=== PATIENT | female | born 1945 | race Caucasian/White ===

== ENCOUNTER 2020-03-04 17:43 | Inpatient (IN) | payer OTHER, MEDICARE ==
[2020-03-04 18:37] VITALS: BMI 25.7
[2020-03-04] MEDS ORDERED: SODIUM CHLORIDE 1,000 ML IV SCH (20:00)
[2020-03-04] MEDS ORDERED: DEXAMETHASONE SOD PHOSPHATE 4 MG/1 ML VIAL IVPUSH ONE (20:46)
[2020-03-04] MEDS ORDERED: ASPIRIN 81 MG CHEWABLE TABLETS PO ONE (20:46)
[2020-03-04] MEDS ORDERED: ATORVASTATIN CA 80 MG TABLET (FP) PO ONE (20:47)
[2020-03-04] MEDS ORDERED: ATORVASTATIN CA 80 MG TABLET (FP) ONE (20:56)
[2020-03-04] MEDS ORDERED: ASPIRIN 81 MG CHEWABLE TABLETS ONE (20:56)
[2020-03-04] MEDS ORDERED: DEXAMETHASONE SOD PHOSPHATE 10 MG/1 ML VIAL ONE (20:56)
[2020-03-04 21:15] LABS: BASO % 0.3 % (0-2.0); EOS % 0.2 % (0-4.5); HEMATOCRIT 37.3 % (32.4-45.2); HEMOGLOBIN 12.3 GM/dL (10.7-15.3); LYMPH % 4.7 % (8-40); MCH 28.2 pg (25.7-33.7); MCHC 32.9 g/dl (32.0-36.0); MEAN CELL VOLUME 85.6 fl (80-96); MEAN PLT VOLUME 11.5 fl (7.5-11.1); MONO % 7.2 % (3.8-10.2); NEUT % 87.6 % (42.8-82.8); PLATELET COUNT 217 K/MM3 (134-434); RBC 4.36 M/mm3 (3.60-5.2); RDW 13.6 % (11.6-15.6); WHITE BLOOD COUNT 11.7 K/mm3 (4.0-10.0)
[2020-03-04 21:25] LABS: INR 1.15 (0.83-1.09); PROTHROMBIN TIME (PATIENT) 13.9 SEC (9.7-13.0)
[2020-03-04 21:27] LABS: ACTIVATED PTT 30.7 SECONDS (25.2-36.5)
[2020-03-04 21:32] LABS: CALCIUM 8.9 mg/dL (8.5-10.1)
[2020-03-04 21:33] LABS: ALBUMIN 2.6 g/dl (3.4-5.0); BLOOD UREA NITROGEN 10.2 mg/dL (7-18)
[2020-03-04 21:36] LABS: CHOLESTEROL 127 mg/dL (50-200); CREATININE 0.6 mg/dL (0.55-1.3); TRIGLYCERIDES 123 mg/dL (0-150)
[2020-03-04 21:37] LABS: LDL CHOLESTEROL (ONLY SJRH) 80 mg/dL (5-100)
[2020-03-04 21:38] LABS: BILIRUBIN,TOTAL 0.6 mg/dL (0.2-1); TOT PROT 6.7 g/dl (6.4-8.2)
[2020-03-04 21:39] LABS: HDL CHOLESTEROL 32 mg/dL (40-60)
[2020-03-05 00:33] LABS: EPI CELLS 29 /uL (0-25.1); HYALINE CASTS 0 /uL (0-3.1); PH,URINE 7.5 (5.0-8.0); URINE APPEARANCE CLOUDY; URINE BACTERIA 5419 /uL (0-1359); URINE BILIRUBIN NEGATIVE (NEGATIVE); URINE COLOR YELLOW; URINE GLUCOSE (UA) NEGATIVE (NEGATIVE); URINE KETONE NEGATIVE (NEGATIVE); URINE LEUK ESTERASE 1+ (NEGATIVE); URINE NITRITE POSITIVE (NEGATIVE); URINE PROTEIN NEGATIVE (NEGATIVE); URINE RBC 7 /uL (0-23.9); URINE WBC 35 /uL (0-25.8)
[2020-03-05 03:02] LABS: BILIRUBIN,DIRECT 0.2 mg/dL (0.0-0.2)
[2020-03-05 06:10] LABS: BASO % 0.3 % (0-2.0); HEMATOCRIT 35.5 % (32.4-45.2); LYMPH % 5.6 % (8-40); MCH 28.8 pg (25.7-33.7); MCHC 33.8 g/dl (32.0-36.0); MEAN CELL VOLUME 85.4 fl (80-96); MEAN PLT VOLUME 11.3 fl (7.5-11.1); NEUT % 91.1 % (42.8-82.8); PLATELET COUNT 202 K/MM3 (134-434); RBC 4.16 M/mm3 (3.60-5.2); RDW 13.3 % (11.6-15.6); WHITE BLOOD COUNT 8.8 K/mm3 (4.0-10.0)
[2020-03-05 06:34] LABS: ALBUMIN 2.3 g/dl (3.4-5.0); BLOOD UREA NITROGEN 6.9 mg/dL (7-18); CALCIUM 8.7 mg/dL (8.5-10.1); MAGNESIUM 2.1 mg/dL (1.8-2.4)
[2020-03-05 06:37] LABS: CREATININE 0.6 mg/dL (0.55-1.3); PHOSPHOROUS 3.4 mg/dL (2.5-4.9)
[2020-03-05 06:38] LABS: BILIRUBIN,TOTAL 0.6 mg/dL (0.2-1); TOT PROT 6.1 g/dl (6.4-8.2)
[2020-03-05 07:10] LABS: ANISOCYTOSIS 2+; MACROCYTOSIS 1+; PLATELET ESTIMATE NORMAL
[2020-03-05] MEDS ORDERED: DEXAMETHASONE SOD PHOSPHATE 10 MG/1 ML VIAL ONE (10:42)
[2020-03-05] MEDS ORDERED: ENOXAPARIN NA (PORCINE) 40 MG/0.4 ML DISP.SYRIN SQ ONE (10:42)
[2020-03-05] MEDS ORDERED: CHOLECALCIFEROL (VIT D3) 1,000 UNIT (25 MCG) TABLET ONE (10:42)
[2020-03-05] MEDS ORDERED: ASPIRIN 81 MG CHEWABLE TABLETS ONE (10:42)
[2020-03-05] MEDS ORDERED: ASCORBIC ACID 500 MG TABLET (FP) ONE (10:42)
[2020-03-05] MEDS ORDERED: ZINC SULFATE 220 MG CAPSULE (FP) ONE (10:42)
[2020-03-05] MEDS ORDERED: ATORVASTATIN CA 40 MG TABLET (FP) ONE (10:42)
[2020-03-05] MEDS ORDERED: FAMOTIDINE 20 MG/50 ML IVPB 20 MG/50 ML MG IVPB ONE (10:43)
[2020-03-05] MEDS: ENOXAPARIN NA (PORCINE) 40 MG/0.4 ML DISP.SYRIN SQ SCH (11:51)
[2020-03-05] MEDS: ATORVASTATIN CA 40 MG TABLET (FP) PO SCH (11:51)
[2020-03-05] MEDS: ASPIRIN 81 MG CHEWABLE TABLETS PO SCH (11:51)
[2020-03-05] MEDS: DEXAMETHASONE SOD PHOSPHATE 4 MG/1 ML VIAL IVPUSH SCH (11:51)
[2020-03-05] MEDS: ASCORBIC ACID 500 MG TABLET (FP) PO SCH ×2 (11:52→21:33)
[2020-03-05] MEDS: FAMOTIDINE 20 MG/50 ML IVPB 20 MG/50 ML MG IVPB SCH ×2 (11:52→21:33)
[2020-03-05] MEDS: CHOLECALCIFEROL (VIT D3) 1,000 UNIT (25 MCG) TABLET PO SCH (11:52)
[2020-03-05] MEDS: ZINC SULFATE 220 MG CAPSULE (FP) PO SCH (11:52)
[2020-03-05] MEDS ORDERED: ATORVASTATIN CA 80 MG TABLET (FP) PO SCH (22:00)
[2020-03-06] MEDS ORDERED: SODIUM CHLORIDE 500 ML IV STA (07:55)
[2020-03-06] MEDS: FAMOTIDINE 20 MG/50 ML IVPB 20 MG/50 ML MG IVPB SCH ×2 (09:55→21:09)
[2020-03-06] MEDS: DEXAMETHASONE SOD PHOSPHATE 4 MG/1 ML VIAL IVPUSH SCH (09:55)
[2020-03-06] MEDS: ENOXAPARIN NA (PORCINE) 40 MG/0.4 ML DISP.SYRIN SQ SCH (09:55)
[2020-03-06] MEDS: ATORVASTATIN CA 40 MG TABLET (FP) PO SCH (09:56)
[2020-03-06] MEDS: CLOPIDOGREL BISULFATE 75 MG TABLET (FP) PO SCH (09:56)
[2020-03-06] MEDS: CHOLECALCIFEROL (VIT D3) 1,000 UNIT (25 MCG) TABLET PO SCH (09:56)
[2020-03-06] MEDS: ZINC SULFATE 220 MG CAPSULE (FP) PO SCH (09:56)
[2020-03-06] MEDS: ASPIRIN 81 MG CHEWABLE TABLETS PO SCH (09:56)
[2020-03-06] MEDS: ASCORBIC ACID 500 MG TABLET (FP) PO SCH ×2 (09:56→21:08)
[2020-03-06 11:23] LABS: HEMATOCRIT 32.5 % (32.4-45.2); HEMOGLOBIN 10.8 GM/dL (10.7-15.3); MCH 28.8 pg (25.7-33.7); MCHC 33.2 g/dl (32.0-36.0); MEAN CELL VOLUME 86.6 fl (80-96); MEAN PLT VOLUME 11.7 fl (7.5-11.1); PLATELET COUNT 187 K/MM3 (134-434); RBC 3.75 M/mm3 (3.60-5.2); RDW 13.6 % (11.6-15.6); WHITE BLOOD COUNT 11.3 K/mm3 (4.0-10.0)
[2020-03-06 11:28] LABS: BLOOD UREA NITROGEN 17.9 mg/dL (7-18); CALCIUM 8.5 mg/dL (8.5-10.1); MAGNESIUM 2.4 mg/dL (1.8-2.4)
[2020-03-06 11:31] LABS: CREATININE 0.7 mg/dL (0.55-1.3)
[2020-03-07 06:50] LABS: HEMATOCRIT 33.9 % (32.4-45.2); HEMOGLOBIN 11.2 GM/dL (10.7-15.3); MCH 28.7 pg (25.7-33.7); MCHC 33.2 g/dl (32.0-36.0); MEAN CELL VOLUME 86.5 fl (80-96); MEAN PLT VOLUME 11.5 fl (7.5-11.1); PLATELET COUNT 181 K/MM3 (134-434); RBC 3.92 M/mm3 (3.60-5.2); RDW 13.4 % (11.6-15.6); WHITE BLOOD COUNT 10.7 K/mm3 (4.0-10.0)
[2020-03-07 07:18] LABS: CALCIUM 8.5 mg/dL (8.5-10.1)
[2020-03-07 07:22] LABS: CREATININE 0.6 mg/dL (0.55-1.3)
[2020-03-07 07:27] LABS: BLOOD UREA NITROGEN 19.7 mg/dL (7-18)
[2020-03-07] MEDS: DEXAMETHASONE SOD PHOSPHATE 4 MG/1 ML VIAL IVPUSH SCH (09:00)
[2020-03-07] MEDS: ZINC SULFATE 220 MG CAPSULE (FP) PO SCH (09:00)
[2020-03-07] MEDS: CHOLECALCIFEROL (VIT D3) 1,000 UNIT (25 MCG) TABLET PO SCH (09:00)
[2020-03-07] MEDS: ASCORBIC ACID 500 MG TABLET (FP) PO SCH ×2 (09:00→22:39)
[2020-03-07] MEDS: CLOPIDOGREL BISULFATE 75 MG TABLET (FP) PO SCH (09:00)
[2020-03-07] MEDS: ENOXAPARIN NA (PORCINE) 40 MG/0.4 ML DISP.SYRIN SQ SCH (09:00)
[2020-03-07] MEDS: FAMOTIDINE 20 MG/50 ML IVPB 20 MG/50 ML MG IVPB SCH ×2 (09:00→22:39)
[2020-03-07] MEDS: ASPIRIN 81 MG CHEWABLE TABLETS PO SCH (09:00)
[2020-03-07] MEDS: ATORVASTATIN CA 40 MG TABLET (FP) PO SCH (11:05)
[2020-03-08] MEDS ORDERED: PT OWN MED DRAWER 7, Y5N ONE (09:29)
[2020-03-08] MEDS: ENOXAPARIN NA (PORCINE) 40 MG/0.4 ML DISP.SYRIN SQ SCH (09:35)
[2020-03-08] MEDS: FAMOTIDINE 20 MG/50 ML IVPB 20 MG/50 ML MG IVPB SCH ×2 (09:35→22:01)
[2020-03-08] MEDS: CHOLECALCIFEROL (VIT D3) 1,000 UNIT (25 MCG) TABLET PO SCH (09:36)
[2020-03-08] MEDS: ASPIRIN 81 MG CHEWABLE TABLETS PO SCH (09:36)
[2020-03-08] MEDS: CLOPIDOGREL BISULFATE 75 MG TABLET (FP) PO SCH (09:36)
[2020-03-08] MEDS: ZINC SULFATE 220 MG CAPSULE (FP) PO SCH (09:36)
[2020-03-08] MEDS: DEXAMETHASONE SOD PHOSPHATE 4 MG/1 ML VIAL IVPUSH SCH (09:36)
[2020-03-08] MEDS: ATORVASTATIN CA 40 MG TABLET (FP) PO SCH (09:36)
[2020-03-08] MEDS: ASCORBIC ACID 500 MG TABLET (FP) PO SCH ×2 (09:36→22:01)
[2020-03-09 09:15] LABS: BASO % 0.9 % (0-2.0); EOS % 0.4 % (0-4.5); HEMOGLOBIN 12.2 GM/dL (10.7-15.3); MCH 28.8 pg (25.7-33.7); MCHC 33.1 g/dl (32.0-36.0); MEAN CELL VOLUME 86.9 fl (80-96); MEAN PLT VOLUME 11.5 fl (7.5-11.1); MONO % 8.2 % (3.8-10.2); NEUT % 81.5 % (42.8-82.8); PLATELET COUNT 176 K/MM3 (134-434); RBC 4.25 M/mm3 (3.60-5.2); RDW 13.8 % (11.6-15.6); WHITE BLOOD COUNT 11.6 K/mm3 (4.0-10.0)
[2020-03-09 09:41] LABS: ALBUMIN 2.7 g/dl (3.4-5.0); BLOOD UREA NITROGEN 20.9 mg/dL (7-18); MAGNESIUM 2.6 mg/dL (1.8-2.4)
[2020-03-09 09:44] LABS: CREATININE 0.7 mg/dL (0.55-1.3)
[2020-03-09] MEDS: CHOLECALCIFEROL (VIT D3) 1,000 UNIT (25 MCG) TABLET PO SCH (09:45)
[2020-03-09] MEDS: ASCORBIC ACID 500 MG TABLET (FP) PO SCH ×2 (09:45→21:11)
[2020-03-09] MEDS: ZINC SULFATE 220 MG CAPSULE (FP) PO SCH (09:45)
[2020-03-09] MEDS: CLOPIDOGREL BISULFATE 75 MG TABLET (FP) PO SCH (09:45)
[2020-03-09 09:46] LABS: BILIRUBIN,TOTAL 0.4 mg/dL (0.2-1); TOT PROT 6.1 g/dl (6.4-8.2)
[2020-03-09] MEDS: ATORVASTATIN CA 40 MG TABLET (FP) PO SCH (09:46)
[2020-03-09] MEDS: ASPIRIN 81 MG CHEWABLE TABLETS PO SCH (09:46)
[2020-03-09] MEDS: ENOXAPARIN NA (PORCINE) 40 MG/0.4 ML DISP.SYRIN SQ SCH (09:46)
[2020-03-09] MEDS: DEXAMETHASONE SOD PHOSPHATE 4 MG/1 ML VIAL IVPUSH SCH (09:46)
[2020-03-09] MEDS: FAMOTIDINE 20 MG/50 ML IVPB 20 MG/50 ML MG IVPB SCH ×2 (09:47→21:11)
[2020-03-09 11:20] LABS: ANISOCYTOSIS 0; HELMET CELLS 0; HOWELL-JOLLY BODIES 0; MACROCYTOSIS 0; OVALOCYTE 0; PLATELET ESTIMATE DECREASED; ROULEAU 0; SICKELED CELLS 0; TARGET CELLS 0; TEAR DROP CELLS 0; TOXIC GRANULATION 0
[2020-03-09] MEDS: DOCUSATE SODIUM 100 MG CAPSULE (FP) PO SCH (13:09)
[2020-03-10 07:57] LABS: BASO % 0.2 % (0-2.0); EOS % 0.8 % (0-4.5); HEMATOCRIT 35.1 % (32.4-45.2); HEMOGLOBIN 11.9 GM/dL (10.7-15.3); LYMPH % 11.1 % (8-40); MCH 29.2 pg (25.7-33.7); MCHC 33.8 g/dl (32.0-36.0); MEAN CELL VOLUME 86.3 fl (80-96); MEAN PLT VOLUME 12.1 fl (7.5-11.1); MONO % 7.9 % (3.8-10.2); PLATELET COUNT 169 K/MM3 (134-434); RBC 4.07 M/mm3 (3.60-5.2); RDW 13.4 % (11.6-15.6); WHITE BLOOD COUNT 10.7 K/mm3 (4.0-10.0)
[2020-03-10 08:27] LABS: CALCIUM 8.6 mg/dL (8.5-10.1)
[2020-03-10 08:28] LABS: ALBUMIN 2.5 g/dl (3.4-5.0); MAGNESIUM 2.4 mg/dL (1.8-2.4)
[2020-03-10 08:29] LABS: CREATININE 0.7 mg/dL (0.55-1.3)
[2020-03-10 08:31] LABS: BILIRUBIN,TOTAL 0.4 mg/dL (0.2-1); TOT PROT 5.7 g/dl (6.4-8.2)
[2020-03-10 08:33] LABS: PHOSPHOROUS 3.3 mg/dL (2.5-4.9)
[2020-03-10 09:18] LABS: ANISOCYTOSIS 2+; MACROCYTOSIS 0; PLATELET ESTIMATE NORMAL
[2020-03-10] MEDS: ASCORBIC ACID 500 MG TABLET (FP) PO SCH ×2 (09:47→21:42)
[2020-03-10] MEDS: ENOXAPARIN NA (PORCINE) 40 MG/0.4 ML DISP.SYRIN SQ SCH (09:47)
[2020-03-10] MEDS: FAMOTIDINE 20 MG/50 ML IVPB 20 MG/50 ML MG IVPB SCH (09:47)
[2020-03-10] MEDS: CLOPIDOGREL BISULFATE 75 MG TABLET (FP) PO SCH (09:48)
[2020-03-10] MEDS: ASPIRIN 81 MG CHEWABLE TABLETS PO SCH (09:48)
[2020-03-10] MEDS: DOCUSATE SODIUM 100 MG CAPSULE (FP) PO SCH (09:48)
[2020-03-10] MEDS: CHOLECALCIFEROL (VIT D3) 1,000 UNIT (25 MCG) TABLET PO SCH (09:48)
[2020-03-10] MEDS: ZINC SULFATE 220 MG CAPSULE (FP) PO SCH (09:48)
[2020-03-10] MEDS: ATORVASTATIN CA 40 MG TABLET (FP) PO SCH (09:48)
[2020-03-10] MEDS: DEXAMETHASONE SOD PHOSPHATE 4 MG/1 ML VIAL IVPUSH SCH (09:48)
[2020-03-10] MEDS: FAMOTIDINE 20 MG TABLET PO SCH (21:42)
[2020-03-11] MEDS: FAMOTIDINE 20 MG TABLET PO SCH (10:19)
[2020-03-11] MEDS: ATORVASTATIN CA 40 MG TABLET (FP) PO SCH (10:19)
[2020-03-11] MEDS: ZINC SULFATE 220 MG CAPSULE (FP) PO SCH (10:19)
[2020-03-11] MEDS: ASCORBIC ACID 500 MG TABLET (FP) PO SCH (10:19)
[2020-03-11] MEDS: DEXAMETHASONE SOD PHOSPHATE 4 MG/1 ML VIAL IVPUSH SCH (10:19)
[2020-03-11] MEDS: DOCUSATE SODIUM 100 MG CAPSULE (FP) PO SCH (10:19)
[2020-03-11] MEDS: ENOXAPARIN NA (PORCINE) 40 MG/0.4 ML DISP.SYRIN SQ SCH (10:19)
[2020-03-11] MEDS: CLOPIDOGREL BISULFATE 75 MG TABLET (FP) PO SCH (10:19)
[2020-03-11] MEDS: ASPIRIN 81 MG CHEWABLE TABLETS PO SCH (10:19)
[2020-03-11] MEDS: CHOLECALCIFEROL (VIT D3) 1,000 UNIT (25 MCG) TABLET PO SCH (10:19)
[2020-03-11 14:14] VITALS: BP 107/62; PULSE 76; TEMP 97.8
[2020-03-14 10:03] LABS: HOMOCYSTINE-PLASMA OR SERUM 8.3 umol/L
[2020-03-14 10:05] LABS: METHYLMALONIC ACID- 133
== END 2020-03-11 17:29 | DRG 64 ==
LOC: JER 17:43 → JERBED 20:59 → J4S 03-05 16:22
PROVIDERS: ADMIT Hospitalist; ATTEND Internal Medicine
DX: I63.9 Cerebral infarction, unspecified (principal); U07.1 COVID-19; I24.8 Other forms of acute ischemic heart disease; G81.91 Hemiplegia, unspecified affecting right dominant side; R29.705 NIHSS score 5; I10 Essential (primary) hypertension; E78.5 Hyperlipidemia, unspecified; I71.9 Aortic aneurysm of unspecified site, without rupture; R55 Syncope and collapse; R20.0 Anesthesia of skin; E87.5 Hyperkalemia
CPT/HCPCS: 36415; 70450-TC; 70496-TC; 70551-TC; 71045-TC-FY; 80048; 80053; 80061; 81003; 82136; 82248; 82550; 82728; 82962; 83036; 83615; 83721; 83735; 83918; 84100; 84443; 84484; 85025; 85027; 85379; 85610; 85730; 86140; 87804; 93005; 93010; 93306-TC; 93880-TC; 97116-GP; 97161-GP; 99285-25; C9803; Q9967; U0003